=== PATIENT | male | born 1960 | race Caucasian/White ===

== ENCOUNTER 2017-01-17 14:25 | Inpatient (IN) | payer OTHER ==
[~2017-01-17] VITALS: Ht 188 cm; Wt 105.9 kg
[~2017-01-17 14:25] MED LIST: AMPICILLIN2 GM IV; ASPIRIN81 M1 PO; CLINDAMYCIN HC150 MG PO; COMPAZINE10 MG PO; COUMADIN10 MG PO; COUMADIN5 MG PO; DIGOXIN125 MCG PO; GENTAMICIN IV; K-TAB10 MEQ PO; KLOR-CON M2020 MEQ PO; LANOXIN250 MCG PO; LASIX40 MG PO; LEVAQUIN250 MG PO; LIPITOR40 MG PO; METOPROLOL SUCC50 MG PO; METOPROLOL TART50 MG PO; PHENERGAN-CODE120 ML PO; TOPROL XL100 MG PO; TOPROL XL50 MG PO; WARFARIN SODIU7.5 MG PO; XANAX0.5 MG PO; Xanax PO; ZOFRAN4 MG PO
[2017-01-17 15:38] LABS: HEMATOCRIT 37.7 % (38.0-50.0); MCH 30.4 PG (29.0-34.0); MCHC 33.2 G/DL (30.0-36.0); MCV 91.7 FL (86-99); PLATELET COUNT 110 K/uL (156-360); RBC DIS.WIDTH-CV 15.9 % (11.8-14.6); RBC DIS.WIDTH-SD 53.3 % (39-53); RED BLOOD COUNT 4.11 M/uL (4.00-5.50); WHITE BLOOD COUNT 5.2 K/uL (4.1-10.2)
[2017-01-17 15:43] LABS: INTER. NORMALIZED RATIO 2.8; PROTHROMBIN TIME 32.5 SEC (10.2-12.9)
[2017-01-17 15:54] LABS: CHLORIDE 101 mEq/L (99-109); POTASSIUM 3.9 mEq/L (3.7-5.4); SODIUM 139 mEq/L (136-147)
[2017-01-17 15:55] LABS: GLUCOSE 99 mg/dL (70-99)
[2017-01-17 15:57] LABS: ANION GAP 12 MEQ/L (2-14)
[2017-01-17 15:59] LABS: GFR ESTIMATE (CALCULATED) > 59 mL/min/
[2017-01-17 16:00] LABS: UREA NITROGEN (BUN) 16 mg/dL (9-23)
[2017-01-17 16:03] LABS: TROP-I INTERPRETATION NEGATIVE; TROPONIN-I 0.03 ng/mL (0.0-0.30)
[2017-01-17] MEDS ORDERED: ALDACTONE25 MG PO (18:22)
[2017-01-17] MEDS ORDERED: BUMEX2 MG PO (18:23)
[2017-01-17] MEDS ORDERED: PROAIR HFA8.5 GM IH (18:24)
[2017-01-17] MEDS ORDERED: AMOXICILLIN500 MG PO (18:25)
[2017-01-17] MEDS ORDERED: TYLENOL EXTRA500 MG PO (18:28)
[2017-01-17] MEDS ORDERED: BREO ELLIPTA I1 EACH IH (18:29)
[2017-01-17 19:37] VITALS: BP 109/72
[2017-01-17 23:36] LABS: TROP-I INTERPRETATION NEGATIVE; TROPONIN-I 0.04 ng/mL (0.0-0.30)
[2017-01-18] VITALS (8 sets, daily range): BP systolic 96–108; BP diastolic 53–66
[2017-01-18 09:06] LABS: INTER. NORMALIZED RATIO 2.5; PROTHROMBIN TIME 28.6 SEC (10.2-12.9)
[2017-01-18 09:20] LABS: ANION GAP 9 MEQ/L (2-14); CHLORIDE 98 MEQ/L (99-109); GFR ESTIMATE (CALCULATED) > 59 mL/min/; GLUCOSE 104 mg/dL (70-99); POTASSIUM 3.8 MEQ/L (3.7-5.4); SAMPLE HEMOLYSIS CHECK 0; SAMPLE ICTERIC CHECK 0; SAMPLE LIPEMIA CHECK 0; SODIUM 138 MEQ/L (136-147); UREA NITROGEN (BUN) 19 mg/dL (9-23)
[2017-01-18 09:31] LABS: TROP-I INTERPRETATION NEGATIVE; TROPONIN-I 0.03 ng/mL (0.0-0.30)
[2017-01-19] VITALS (8 sets, daily range): BP systolic 87–102; BP diastolic 57–69
[2017-01-19 06:10] LABS: INTER. NORMALIZED RATIO 2.7; PROTHROMBIN TIME 30.4 SEC (10.2-12.9)
[2017-01-19 06:35] LABS: ANION GAP 8 MEQ/L (2-14); CHLORIDE 97 MEQ/L (99-109); GFR ESTIMATE (CALCULATED) 56 mL/min/; GLUCOSE 94 mg/dL (70-99); POTASSIUM 3.7 MEQ/L (3.7-5.4); SAMPLE HEMOLYSIS CHECK 0; SAMPLE ICTERIC CHECK 0; SAMPLE LIPEMIA CHECK 0; SODIUM 136 MEQ/L (136-147); UREA NITROGEN (BUN) 21 mg/dL (9-23)
[2017-01-20 03:19] VITALS: BP 99/58
[2017-01-20 07:10] VITALS: BP 106/66
[2017-01-20 07:49] LABS: ANION GAP 8 MEQ/L (2-14); CHLORIDE 99 MEQ/L (99-109); GFR ESTIMATE (CALCULATED) > 59 mL/min/; GLUCOSE 106 mg/dL (70-99); POTASSIUM 4.1 MEQ/L (3.7-5.4); SAMPLE HEMOLYSIS CHECK 0; SAMPLE ICTERIC CHECK 0; SAMPLE LIPEMIA CHECK 0; SODIUM 138 MEQ/L (136-147); UREA NITROGEN (BUN) 21 mg/dL (9-23)
[2017-01-20 16:15] VITALS: BP 105/61
[2017-01-20 21:02] VITALS: BP 100/61
[2017-01-20 22:57] VITALS: BP 100/59
[2017-01-21 07:34] VITALS: BP 124/60
[2017-01-21 08:08] LABS: ANION GAP 7 MEQ/L (2-14); CHLORIDE 99 MEQ/L (99-109); GFR ESTIMATE (CALCULATED) > 59 mL/min/; GLUCOSE 96 mg/dL (70-99); SAMPLE HEMOLYSIS CHECK 0; SAMPLE ICTERIC CHECK 0; SAMPLE LIPEMIA CHECK 0; SODIUM 138 MEQ/L (136-147); UREA NITROGEN (BUN) 20 mg/dL (9-23)
[2017-01-21 15:39] VITALS: BP 94/56
[2017-01-21 17:23] VITALS: BP 111/62
[2017-01-21 17:55] LABS: INTER. NORMALIZED RATIO 3.3; PROTHROMBIN TIME 37.7 SEC (10.2-12.9)
[2017-01-21 23:49] VITALS: BP 100/65
[2017-01-22 06:49] LABS: INTER. NORMALIZED RATIO 3.6; PROTHROMBIN TIME 41.2 SEC (10.2-12.9)
[2017-01-22 06:57] LABS: ANION GAP 9 MEQ/L (2-14); CHLORIDE 98 MEQ/L (99-109); GFR ESTIMATE (CALCULATED) > 59 mL/min/; GLUCOSE 103 mg/dL (70-99); SAMPLE HEMOLYSIS CHECK 0; SAMPLE ICTERIC CHECK 0; SAMPLE LIPEMIA CHECK 0; SODIUM 136 MEQ/L (136-147); UREA NITROGEN (BUN) 25 mg/dL (9-23)
[2017-01-22 07:19] VITALS: BP 107/56
[2017-01-22 15:41] VITALS: BP 97/55
[2017-01-22 19:30] VITALS: BP 98/61
[2017-01-23 00:51] VITALS: BP 98/70
[2017-01-23 06:21] LABS: INTER. NORMALIZED RATIO 3.2; PROTHROMBIN TIME 36.7 SEC (10.2-12.9)
[2017-01-23 06:34] LABS: ANION GAP 7 MEQ/L (2-14); CHLORIDE 99 MEQ/L (99-109); GFR ESTIMATE (CALCULATED) > 59 mL/min/; GLUCOSE 103 mg/dL (70-99); POTASSIUM 4.1 MEQ/L (3.7-5.4); SAMPLE HEMOLYSIS CHECK 0; SAMPLE ICTERIC CHECK 0; SAMPLE LIPEMIA CHECK 0; SODIUM 135 MEQ/L (136-147); UREA NITROGEN (BUN) 25 mg/dL (9-23)
[2017-01-23 07:30] VITALS: BP 105/66
== END 2017-01-23 14:34 | disposition home or self-care (01) | DRG 292 ==
LOC: EME 14:25 → 2EAST 17:23 → EDOF 17:23 → ENRESERV 17:26 → 2EAST 19:35
PROVIDERS: Emergency Medicine; Internal Medicine; Internal Medicine Cardiovascular Disease
DX: I11.0 Hypertensive heart disease with heart failure (principal); I50.9 Heart failure, unspecified; I48.2 Chronic atrial fibrillation; I38 Endocarditis, valve unspecified; E05.90 Thyrotoxicosis, unspecified without thyrotoxic crisis or storm; I25.10 Atherosclerotic heart disease of native coronary artery without angina pectoris; R09.89 Other specified symptoms and signs involving the circulatory and respiratory systems; E66.3 Overweight; R79.1 Abnormal coagulation profile; R09.02 Hypoxemia; E78.5 Hyperlipidemia, unspecified; I35.9 Nonrheumatic aortic valve disorder, unspecified; K80.20 Calculus of gallbladder without cholecystitis without obstruction; F17.210 Nicotine dependence, cigarettes, uncomplicated; K21.9 Gastro-esophageal reflux disease without esophagitis; G43.909 Migraine, unspecified, not intractable, without status migrainosus; I25.2 Old myocardial infarction; Z90.49 Acquired absence of other specified parts of digestive tract; Z86.73 Personal history of transient ischemic attack (TIA), and cerebral infarction without residual deficits; Z87.442 Personal history of urinary calculi; Z86.79 Personal history of other diseases of the circulatory system; Z79.2 Long term (current) use of antibiotics; Z79.01 Long term (current) use of anticoagulants; Z79.899 Other long term (current) drug therapy; Z68.29 Body mass index [BMI] 29.0-29.9, adult
CPT/HCPCS: 71010; 80048; 84443; 84484; 85027; 85610; 93005; 94640; 94640 76; 94760; 94799; 99202; 99281; 99285; J1940

== ENCOUNTER 2017-01-29 21:32 | Inpatient (IN) | payer OTHER ==
[~2017-01-29] VITALS: Ht 188 cm; Wt 92.5 kg
[~2017-01-29 21:32] MED LIST changes: +ALDACTONE25 MG PO; +AMOXICILLIN500 MG PO; +BREO ELLIPTA I1 EACH IH; +BUMEX2 MG PO; +PROAIR HFA8.5 GM IH; +TYLENOL EXTRA500 MG PO
[2017-01-29 22:27] LABS: HEMATOCRIT 35.8 % (38.0-50.0); MCHC 32.7 G/DL (30.0-36.0); MCV 91.8 FL (86-99); MEAN PLAT.VOLUME 11.7 uM^3 (9.0-12.4); PLATELET COUNT 96 K/uL (156-360); RBC DIS.WIDTH-CV 16.4 % (11.8-14.6); RBC DIS.WIDTH-SD 54.8 % (39-53); WHITE BLOOD COUNT 4.1 K/uL (4.1-10.2)
[2017-01-29 22:40] LABS: CHLORIDE 100 mEq/L (99-109); SODIUM 139 mEq/L (136-147)
[2017-01-29 22:42] LABS: GLUCOSE 106 mg/dL (70-99)
[2017-01-29 22:44] LABS: ANION GAP 12 MEQ/L (2-14)
[2017-01-29 22:47] LABS: UREA NITROGEN (BUN) 22 mg/dL (9-23)
[2017-01-29 22:49] LABS: GFR ESTIMATE (CALCULATED) 39 mL/min/; POTASSIUM 3.2 mEq/L (3.7-5.4)
[2017-01-29 22:51] LABS: TROP-I INTERPRETATION NEGATIVE; TROPONIN-I 0.03 ng/mL (0.0-0.30)
[2017-01-29 22:59] LABS: INTER. NORMALIZED RATIO 1.7; PROTHROMBIN TIME 18.9 SEC (10.2-12.9)
[2017-01-30] MEDS ORDERED: FUROSEMIDE40 MG PO ×2 (00:12)
[2017-01-30 03:43] VITALS: BP 100/71
[2017-01-30 06:07] LABS: INTER. NORMALIZED RATIO 1.7; PROTHROMBIN TIME 19.5 SEC (10.2-12.9)
[2017-01-30 06:24] LABS: TROP-I INTERPRETATION NEGATIVE; TROPONIN-I 0.03 ng/mL (0.0-0.30)
[2017-01-30 11:56] LABS: TROP-I INTERPRETATION NEGATIVE; TROPONIN-I 0.03 ng/mL (0.0-0.30)
[2017-01-30 12:08] VITALS: BP 117/72
[2017-01-30 16:23] VITALS: BP 104/52
[2017-01-30 19:37] VITALS: BP 106/56
[2017-01-31] VITALS (7 sets, daily range): BP systolic 96–154; BP diastolic 56–76
[2017-01-31 06:50] LABS: INTER. NORMALIZED RATIO 1.6; PROTHROMBIN TIME 17.6 SEC (10.2-12.9)
[2017-01-31 07:10] LABS: ANION GAP 9 MEQ/L (2-14); CHLORIDE 99 MEQ/L (99-109); GFR ESTIMATE (CALCULATED) > 59 mL/min/; GLUCOSE 89 mg/dL (70-99); POTASSIUM 3.5 MEQ/L (3.7-5.4); SAMPLE HEMOLYSIS CHECK 0; SAMPLE ICTERIC CHECK 1; SAMPLE LIPEMIA CHECK 0; SODIUM 138 MEQ/L (136-147); UREA NITROGEN (BUN) 19 mg/dL (9-23)
[2017-02-01 03:33] VITALS: BP 102/57
[2017-02-01 06:35] LABS: INTER. NORMALIZED RATIO 1.6; PROTHROMBIN TIME 17.4 SEC (10.2-12.9)
[2017-02-01 07:41] VITALS: BP 124/60
[2017-02-01 09:30] LABS: ANION GAP 12 MEQ/L (2-14); CHLORIDE 101 MEQ/L (99-109); GFR ESTIMATE (CALCULATED) > 59 mL/min/; GLUCOSE 95 mg/dL (70-99); POTASSIUM 3.7 MEQ/L (3.7-5.4); SAMPLE HEMOLYSIS CHECK 0; SAMPLE ICTERIC CHECK 0; SAMPLE LIPEMIA CHECK 0; SODIUM 138 MEQ/L (136-147); UREA NITROGEN (BUN) 22 mg/dL (9-23)
[2017-02-01 11:23] VITALS: BP 99/67
[2017-02-01 15:46] VITALS: BP 100/61
[2017-02-01 20:02] VITALS: BP 119/53
[2017-02-01 23:39] VITALS: BP 112/59
[2017-02-02] VITALS (7 sets, daily range): BP systolic 93–120; BP diastolic 56–97
[2017-02-02 06:43] LABS: INTER. NORMALIZED RATIO 1.6; PROTHROMBIN TIME 18.2 SEC (10.2-12.9)
[2017-02-02 07:04] LABS: ANION GAP 8 MEQ/L (2-14); CHLORIDE 96 MEQ/L (99-109); GFR ESTIMATE (CALCULATED) > 59 mL/min/; GLUCOSE 97 mg/dL (70-99); POTASSIUM 3.1 MEQ/L (3.7-5.4); SAMPLE HEMOLYSIS CHECK 0; SAMPLE ICTERIC CHECK 0; SAMPLE LIPEMIA CHECK 0; SODIUM 138 MEQ/L (136-147); UREA NITROGEN (BUN) 22 mg/dL (9-23)
[2017-02-02 15:55] LABS: ANION GAP 10 MEQ/L (2-14); CHLORIDE 92 MEQ/L (99-109); GFR ESTIMATE (CALCULATED) > 59 mL/min/; GLUCOSE 104 mg/dL (70-99); POTASSIUM 3.6 MEQ/L (3.7-5.4); SAMPLE HEMOLYSIS CHECK 0; SAMPLE ICTERIC CHECK 0; SAMPLE LIPEMIA CHECK 0; SODIUM 138 MEQ/L (136-147); UREA NITROGEN (BUN) 22 mg/dL (9-23)
[2017-02-03 06:52] LABS: HEMATOCRIT 35.3 % (38.0-50.0); MCH 30.3 PG (29.0-34.0); MCHC 32.9 G/DL (30.0-36.0); MCV 92.2 FL (86-99); MEAN PLAT.VOLUME 11.6 uM^3 (9.0-12.4); PLATELET COUNT 97 K/uL (156-360); RBC DIS.WIDTH-CV 16.5 % (11.8-14.6); RBC DIS.WIDTH-SD 55.7 % (39-53); RED BLOOD COUNT 3.83 M/uL (4.00-5.50); WHITE BLOOD COUNT 4.4 K/uL (4.1-10.2)
[2017-02-03 07:21] LABS: INTER. NORMALIZED RATIO 1.9; PROTHROMBIN TIME 21.3 SEC (10.2-12.9)
[2017-02-03 07:27] LABS: ANION GAP ND MEQ/L (2-14); CHLORIDE 90 MEQ/L (99-109); GFR ESTIMATE (CALCULATED) > 59 mL/min/; GLUCOSE 103 mg/dL (70-99); POTASSIUM 3.2 MEQ/L (3.7-5.4); SAMPLE HEMOLYSIS CHECK 0; SAMPLE ICTERIC CHECK 1; SAMPLE LIPEMIA CHECK 0; SODIUM 139 MEQ/L (136-147); UREA NITROGEN (BUN) 22 mg/dL (9-23)
[2017-02-03 07:30] LABS: CARBON DIOXIDE (BICARBONATE) > 40.0 MEQ/L (20-31)
[2017-02-03 08:03] VITALS: BP 105/53
[2017-02-03 11:41] VITALS: BP 110/65
[2017-02-03 14:15] LABS: ANION GAP 13 MEQ/L (2-14); CHLORIDE 90 MEQ/L (99-109); GFR ESTIMATE (CALCULATED) > 59 mL/min/; GLUCOSE 124 mg/dL (70-99); POTASSIUM 3.4 MEQ/L (3.7-5.4); SAMPLE HEMOLYSIS CHECK 0; SAMPLE ICTERIC CHECK 0; SAMPLE LIPEMIA CHECK 0; SODIUM 137 MEQ/L (136-147); UREA NITROGEN (BUN) 22 mg/dL (9-23)
[2017-02-03 16:19] VITALS: BP 117/82
[2017-02-03 20:30] VITALS: BP 111/60
[2017-02-03 23:50] VITALS: BP 101/56
[2017-02-04] VITALS (7 sets, daily range): BP systolic 98–114; BP diastolic 58–71
[2017-02-04 07:02] LABS: INTER. NORMALIZED RATIO 2.1; PROTHROMBIN TIME 24.3 SEC (10.2-12.9)
[2017-02-04 07:19] LABS: ANION GAP 10 MEQ/L (2-14); CHLORIDE 90 MEQ/L (99-109); GFR ESTIMATE (CALCULATED) > 59 mL/min/; GLUCOSE 102 mg/dL (70-99); MAGNESIUM 2.1 mg/dl (1.3-2.7); POTASSIUM 3.1 MEQ/L (3.7-5.4); SAMPLE HEMOLYSIS CHECK 0; SAMPLE ICTERIC CHECK 1; SAMPLE LIPEMIA CHECK 0; SODIUM 140 MEQ/L (136-147); UREA NITROGEN (BUN) 21 mg/dL (9-23)
[2017-02-05 04:24] VITALS: BP 115/80
[2017-02-05 04:30] VITALS: BP 115/80
[2017-02-05 06:25] LABS: INTER. NORMALIZED RATIO 2.5; PROTHROMBIN TIME 28.7 SEC (10.2-12.9)
[2017-02-05 06:43] LABS: ANION GAP 7 MEQ/L (2-14); CHLORIDE 90 MEQ/L (99-109); GFR ESTIMATE (CALCULATED) > 59 mL/min/; GLUCOSE 112 mg/dL (70-99); POTASSIUM 3.2 MEQ/L (3.7-5.4); SAMPLE HEMOLYSIS CHECK 0; SAMPLE ICTERIC CHECK 1; SAMPLE LIPEMIA CHECK 0; SODIUM 136 MEQ/L (136-147); UREA NITROGEN (BUN) 21 mg/dL (9-23)
[2017-02-05 07:26] VITALS: BP 105/58
[2017-02-05 11:08] VITALS: BP 106/92
[2017-02-05 15:58] VITALS: BP 99/50
[2017-02-05 20:51] VITALS: BP 120/57
[2017-02-06 00:35] VITALS: BP 103/61
[2017-02-06 05:04] VITALS: BP 116/62
[2017-02-06 07:16] LABS: INTER. NORMALIZED RATIO 2.9; PROTHROMBIN TIME 32.8 SEC (10.2-12.9)
[2017-02-06 07:54] VITALS: BP 115/54
[2017-02-06 10:16] LABS: ANION GAP 7 MEQ/L (2-14); CHLORIDE 92 MEQ/L (99-109); MAGNESIUM 2.2 mg/dl (1.3-2.7); POTASSIUM 3.4 MEQ/L (3.7-5.4); SAMPLE HEMOLYSIS CHECK 0; SAMPLE ICTERIC CHECK 0; SAMPLE LIPEMIA CHECK 0; SODIUM 135 MEQ/L (136-147)
[2017-02-06 10:21] LABS: GFR ESTIMATE (CALCULATED) > 59 mL/min/; GLUCOSE 103 mg/dL (70-99); UREA NITROGEN (BUN) 23 mg/dL (9-23)
[2017-02-06 11:51] VITALS: BP 112/60
== END 2017-02-06 14:55 | disposition home or self-care (01) | DRG 314 ==
LOC: EME 21:32 → 5EAST 01-30 01:43 → EDOF 01-30 01:43 → ENRESERV 01-30 01:48 → 5EAST 01-30 03:09
PROVIDERS: Emergency Medicine; Internal Medicine; Internal Medicine Cardiovascular Disease; Nurse Practitioner Family
DX: I27.81 Cor pulmonale (chronic) (principal); I48.2 Chronic atrial fibrillation; I11.0 Hypertensive heart disease with heart failure; I71.2 Thoracic aortic aneurysm, without rupture; I27.2 Other secondary pulmonary hypertension; E78.5 Hyperlipidemia, unspecified; I25.10 Atherosclerotic heart disease of native coronary artery without angina pectoris; I50.9 Heart failure, unspecified; F17.210 Nicotine dependence, cigarettes, uncomplicated; I35.9 Nonrheumatic aortic valve disorder, unspecified; I71.00 Dissection of unspecified site of aorta; K21.9 Gastro-esophageal reflux disease without esophagitis; I34.0 Nonrheumatic mitral (valve) insufficiency; I45.9 Conduction disorder, unspecified; R29.6 Repeated falls; Z87.442 Personal history of urinary calculi; Z95.2 Presence of prosthetic heart valve; Z79.2 Long term (current) use of antibiotics; Z68.30 Body mass index [BMI] 30.0-30.9, adult; Z86.73 Personal history of transient ischemic attack (TIA), and cerebral infarction without residual deficits; I25.2 Old myocardial infarction
CPT/HCPCS: 71020; 71250; 73030; 80048; 80048 91; 82374; 83735; 83880; 84439; 84443; 84484; 85027; 85610; 85730; 93005; 94640; 94640 76; 94760; 94799; 99202; 99281; 99285; J1650; J1940; J2405

== ENCOUNTER 2017-03-06 10:57 | Inpatient (IN) | payer OTHER ==
[~2017-03-06] VITALS: Ht 188 cm; Wt 103.4 kg
[~2017-03-06 10:57] MED LIST changes: +FUROSEMIDE40 MG PO; -KLOR-CON M2020 MEQ PO; +MICRO-K10 ME2 PO
[2017-03-06 11:56] LABS: EOSINOPHIL (%) 0.5 % (0-5); HEMATOCRIT 35.3 % (38.0-50.0); IMMATURE GRANULOCYTE (%) 0.3 % (0.0-0.7); INSTRUMENT ABS NEUTROPHIL CT 6.5 K/uL; LYMPHOCYTE COUNT 0.6 K/uL (1.0-2.8); MCH 30.4 PG (29.0-34.0); MCHC 33.4 G/DL (30.0-36.0); MEAN PLAT.VOLUME 11.6 uM^3 (9.0-12.4); MONOCYTE (%) 8.6 % (3-12); MONOCYTE COUNT 0.7 K/uL (0-0.8); NEUTROPHIL (%) 82.6 % (45-76); NEUTROPHIL COUNT 6.5 K/uL (1.8-6.4); PLATELET COUNT 89 K/uL (156-360); RBC DIS.WIDTH-CV 16.6 % (11.8-14.6); RBC DIS.WIDTH-SD 54.9 % (39-53); RED BLOOD COUNT 3.88 M/uL (4.00-5.50); WHITE BLOOD COUNT 7.9 K/uL (4.1-10.2)
[2017-03-06 12:14] LABS: CHLORIDE 87 mEq/L (99-109); POTASSIUM 2.5 mEq/L (3.7-5.4); SODIUM 136 mEq/L (136-147)
[2017-03-06 12:16] LABS: GLUCOSE 106 mg/dL (70-99)
[2017-03-06 12:17] LABS: ANION GAP 14 MEQ/L (2-14)
[2017-03-06 12:18] LABS: TOTAL BILIRUBIN 3.6 mg/dL (0.0-1.0)
[2017-03-06 12:19] LABS: ALKALINE PHOSPHATASE 89 IU/L (3-129)
[2017-03-06 12:20] LABS: GFR ESTIMATE (CALCULATED) > 59 mL/min/
[2017-03-06 12:21] LABS: DIRECT BILIRUBIN 1.2 mg/dL (0.0-0.3); UREA NITROGEN (BUN) 29 mg/dL (9-23)
[2017-03-06 12:23] LABS: LIPASE 29 U/L (1.0-51.0)
[2017-03-06 12:24] LABS: TROP-I INTERPRETATION NEGATIVE; TROPONIN-I 0.06 ng/mL (0.0-0.30)
[2017-03-06 12:27] LABS: INTER. NORMALIZED RATIO 2.2
[2017-03-06 12:30] LABS: PTT 33.9 SEC (25-37)
[2017-03-06] MEDS ORDERED: TORSEMIDE100 MG PO (13:45)
[2017-03-06] MEDS ORDERED: WARFARIN SODIUM5 MG PO (13:48)
[2017-03-06] MEDS ORDERED: EPLERENONE25 MG PO (13:49)
[2017-03-06] MEDS ORDERED: METOLAZONE5 MG PO (13:50)
[2017-03-06] MEDS ORDERED: CHERATUSSIN AC473 ML PO (13:52)
[2017-03-06 15:13] LABS: ADD MIUA? YES; BILIRUBIN NEGATIVE; BLOOD NEGATIVE; COLOR YELLOW ((YELLOW)); GLUCOSE (STRIP) NEGATIVE; KETONES NEGATIVE; LEUKOCYTES NEGATIVE; NITRITE NEGATIVE; PROTEIN (STRIP) 100; SPECIFIC GRAVITY 1.016 (1.000-1.030)
[2017-03-06 15:19] LABS: BACTERIA NONE SEEN /HPF; EPITHELIAL CELLS RARE /HPF; MUCUS TRACE /LPF; RED BLOOD CELLS 0-5 /HPF (0-5); UCUL ADDED? NO; WHITE BLOOD CELLS 0-5 /HPF (0-5)
[2017-03-06 20:00] VITALS: BP 116/65
[2017-03-06 20:34] LABS: CHLORIDE 89 mEq/L (99-109); POTASSIUM 2.7 mEq/L (3.7-5.4); SODIUM 135 mEq/L (136-147)
[2017-03-06 20:36] LABS: GLUCOSE 157 mg/dL (70-99)
[2017-03-06 20:37] LABS: ANION GAP 13 MEQ/L (2-14)
[2017-03-06 20:40] LABS: GFR ESTIMATE (CALCULATED) > 59 mL/min/
[2017-03-06 20:41] LABS: UREA NITROGEN (BUN) 27 mg/dL (9-23)
[2017-03-06 22:58] VITALS: BP 106/71
[2017-03-06 23:06] LABS: TROP-I INTERPRETATION NEGATIVE; TROPONIN-I 0.15 ng/mL (0.0-0.30)
[2017-03-07 04:15] VITALS: BP 100/62
[2017-03-07 05:51] LABS: TROP-I INTERPRETATION NEGATIVE; TROPONIN-I 0.15 ng/mL (0.0-0.30)
[2017-03-07 07:35] VITALS: BP 100/60
[2017-03-07 09:34] LABS: ANION GAP 14 MEQ/L (2-14); CHLORIDE 91 MEQ/L (99-109); GFR ESTIMATE (CALCULATED) > 59 mL/min/; SAMPLE HEMOLYSIS CHECK 0; SAMPLE ICTERIC CHECK 1; SAMPLE LIPEMIA CHECK 0; SODIUM 135 MEQ/L (136-147); UREA NITROGEN (BUN) 29 mg/dL (9-23)
[2017-03-07 09:43] LABS: GLUCOSE 116 mg/dL (70-99); POTASSIUM 3.3 MEQ/L (3.7-5.4)
[2017-03-07 11:35] VITALS: BP 100/55
[2017-03-07 15:29] VITALS: BP 95/54
[2017-03-07 19:30] VITALS: BP 98/52
[2017-03-08] VITALS (7 sets, daily range): BP systolic 92–115; BP diastolic 58–76
[2017-03-09] VITALS (8 sets, daily range): BP systolic 97–129; BP diastolic 55–72
[2017-03-09 14:00] LABS: INTER. NORMALIZED RATIO 2.4
[2017-03-10 03:28] VITALS: BP 103/67
[2017-03-10 06:01] LABS: INTER. NORMALIZED RATIO 2.5; PROTHROMBIN TIME 28.9 SEC (10.2-12.9)
[2017-03-10 08:00] VITALS: BP 99/59
[2017-03-10 08:26] LABS: ANION GAP 10 MEQ/L (2-14); CHLORIDE 87 MEQ/L (99-109); POTASSIUM 2.8 MEQ/L (3.7-5.4); SAMPLE HEMOLYSIS CHECK 0; SAMPLE ICTERIC CHECK 0; SAMPLE LIPEMIA CHECK 0; SODIUM 132 MEQ/L (136-147)
[2017-03-10 08:40] LABS: GFR ESTIMATE (CALCULATED) > 59 mL/min/; GLUCOSE 124 mg/dL (70-99)
[2017-03-10 08:42] LABS: UREA NITROGEN (BUN) 47 mg/dL (9-23)
[2017-03-10 12:25] VITALS: BP 114/78
[2017-03-10 16:00] VITALS: BP 128/56
[2017-03-10 19:49] VITALS: BP 121/52
[2017-03-10 23:34] VITALS: BP 108/76
[2017-03-11 03:21] VITALS: BP 94/58
[2017-03-11 06:06] LABS: ANION GAP 11 MEQ/L (2-14); CHLORIDE 87 MEQ/L (99-109); GFR ESTIMATE (CALCULATED) > 59 mL/min/; GLUCOSE 131 mg/dL (70-99); SAMPLE HEMOLYSIS CHECK 0; SAMPLE ICTERIC CHECK 0; SAMPLE LIPEMIA CHECK 0; SODIUM 133 MEQ/L (136-147); UREA NITROGEN (BUN) 45 mg/dL (9-23)
[2017-03-11 06:20] LABS: INTER. NORMALIZED RATIO 2.5
[2017-03-11 07:31] VITALS: BP 91/55
[2017-03-11 13:20] VITALS: BP 134/59
[2017-03-11 17:21] VITALS: BP 95/52
[2017-03-11 20:45] VITALS: BP 100/58
[2017-03-11 23:15] VITALS: BP 97/63
[2017-03-12 04:50] VITALS: BP 98/59
[2017-03-12 05:31] LABS: INTER. NORMALIZED RATIO 2.9; PROTHROMBIN TIME 33.5 SEC (10.2-12.9)
[2017-03-12 05:54] LABS: ANION GAP 9 MEQ/L (2-14); CHLORIDE 90 MEQ/L (99-109); GFR ESTIMATE (CALCULATED) > 59 mL/min/; GLUCOSE 110 mg/dL (70-99); POTASSIUM 3.5 MEQ/L (3.7-5.4); SAMPLE HEMOLYSIS CHECK 0; SAMPLE ICTERIC CHECK 0; SAMPLE LIPEMIA CHECK 0; SODIUM 133 MEQ/L (136-147); UREA NITROGEN (BUN) 44 mg/dL (9-23)
[2017-03-12 08:21] VITALS: BP 103/58
[2017-03-12 12:48] VITALS: BP 91/58
[2017-03-12 15:42] VITALS: BP 98/53
[2017-03-12 19:30] VITALS: BP 94/59
[2017-03-12 23:32] VITALS: BP 110/59
[2017-03-13 03:24] VITALS: BP 101/58
[2017-03-13 05:37] LABS: INTER. NORMALIZED RATIO 2.9; PROTHROMBIN TIME 33.4 SEC (10.2-12.9)
[2017-03-13 08:00] VITALS: BP 102/59
[2017-03-13 11:56] VITALS: BP 100/87
== END 2017-03-13 13:43 | disposition home or self-care (01) | DRG 640 ==
LOC: EME 10:57 → EDOF 14:00 → 4EAST 14:00 → ENRESERV 14:29 → 4EAST 19:52
PROVIDERS: Emergency Medicine; Internal Medicine; Nurse Practitioner Family
DX: E87.6 Hypokalemia (principal); I11.0 Hypertensive heart disease with heart failure; I27.81 Cor pulmonale (chronic); J18.9 Pneumonia, unspecified organism; I35.9 Nonrheumatic aortic valve disorder, unspecified; I48.2 Chronic atrial fibrillation; R09.02 Hypoxemia; I25.10 Atherosclerotic heart disease of native coronary artery without angina pectoris; I27.29 Other secondary pulmonary hypertension; I34.0 Nonrheumatic mitral (valve) insufficiency; Y95 Nosocomial condition; E20.9 Hypoparathyroidism, unspecified; R01.1 Cardiac murmur, unspecified; E78.5 Hyperlipidemia, unspecified; K21.9 Gastro-esophageal reflux disease without esophagitis; I50.9 Heart failure, unspecified; I25.2 Old myocardial infarction; Z87.19 Personal history of other diseases of the digestive system; Z86.73 Personal history of transient ischemic attack (TIA), and cerebral infarction without residual deficits; Z95.2 Presence of prosthetic heart valve; Z87.891 Personal history of nicotine dependence; Z87.442 Personal history of urinary calculi; Z79.899 Other long term (current) drug therapy; Z88.8 Allergy status to other drugs, medicaments and biological substances; Z79.01 Long term (current) use of anticoagulants; Z79.2 Long term (current) use of antibiotics
CPT/HCPCS: 71010; 80048; 80048 91; 80076; 81003; 83605; 83690; 83880; 84484; 85025; 85610; 85730; 87040; 93005; 94640; 94640 76; 94760; 94799; 99202; 99281; 99285; J0456; J0696; J1200; J2405; J2543; J2765; J3370; J3480; J7030; J7050; Q0169